=== PATIENT | male | born 1985 | race African-American/Black ===

== ENCOUNTER 2017-01-18 00:01 | Outpatient (RCR) | payer OTHER, MEDICAID, SELFPAY ==
[2016-02-27 10:32] VITALS: BP 112/69
[~2017-01-18 00:01] MED LIST: DARU400T PO; HC130O; RISP2 PO; RITO100T PO; TRUVT PO
[2017-02-09 08:07] LABS: HEPATITIS Bs ANTIGEN SCREEN P Negative (Negative); HEPATITIS C AB SCREEN <0.1 s/co ratio (0.0-0.9)
== END 2017-02-16 | disposition home or self-care (01) ==
LOC: IOPBV 00:01
PROVIDERS: ATTEND Psychiatry & Neurology Psychiatry
DX: F20.0 Paranoid schizophrenia (principal); F17.210 Nicotine dependence, cigarettes, uncomplicated; Z79.899 Other long term (current) drug therapy
CPT/HCPCS: 80074; 86708; 90853

== ENCOUNTER 2025-03-07 05:16 | Emergency (ER) | payer MEDICARE, OTHER ==
[~2025-03-07] VITALS: Ht 172.7 cm; Wt 73.1 kg
[~2025-03-07 05:16] MED LIST changes: +EMTR1TAB53 PO; -RISP2 PO; +RISP2TAB45 PO; -RITO100T PO; -TRUVT PO; +[UNRECOGNIZED DRUG - CODE] PO
[2025-03-07 05:20] VITALS: O2SAT 100
[2025-03-07 05:39] VITALS: TEMP 97.7
[2025-03-07 06:18] LABS: PLATELET COUNT (AUTO) 227 K/uL (150-450); RED BLOOD CELL COUNT(AUTO) 4.80 MIL/uL (4.50-5.90); RED CELL DISTRIBUTION WIDTH 14.8 % (11.5-14.5); WHITE BLOOD COUNT (AUTO) 8.9 K/uL (4.5-11.0)
[2025-03-07 06:25] VITALS: BP 117/76; PULSE 77; RESP 16; O2SAT 100
[2025-03-07 06:25] LABS: CALCIUM, TOTAL 8.5 mg/dL (8.8-10.5); CREATININE 0.75 mg/dL (0.60-1.30); GLOMERULAR FILTR. RATE CALC > 60 mL/min (>60); GLUCOSE,RANDOM 104 mg/dL (70-110); SODIUM SERUM 140 mmol/L (136-145); UREA NITROGEN, BLOOD 9 mg/dL (7-18)
[2025-03-07] MEDS: PERTUSS(ACELL),DIPH,TET/PF 0.5 ML SYRINGE [ADULT] IM. ONE (06:29)
[2025-03-07] MEDS: CeFAZolin 2 GM/DEXTROSE 50 ML IV ONE (06:31)
== END 2025-03-07 06:54 | disposition short-term general hospital (02) ==
LOC: EMS 05:16
DX: S31.010A Laceration without foreign body of lower back and pelvis without penetration into retroperitoneum, initial encounter (principal); S00.83XA Contusion of other part of head, initial encounter; T79.7XXA Traumatic subcutaneous emphysema, initial encounter; Z79.624 Long term (current) use of inhibitors of nucleotide synthesis; Z79.899 Other long term (current) drug therapy; Y09 Assault by unspecified means; Y93.89 Activity, other specified; Y92.89 Other specified places as the place of occurrence of the external cause; Y99.8 Other external cause status
CPT/HCPCS: 70450; 99285; 96365; 80048; 85025; 36415; 70486; 71250; 72125; 72192; 74150; 90715; 90471; G0480; J0690